=== PATIENT | male | born 1975 | race Caucasian/White ===

== ENCOUNTER 2016-05-25 13:13 | Day surgery (SDC) | payer MEDICAID ==
[2016-05-25] MEDS ORDERED: NS 1,000 ML IV SCH (13:45)
[2016-05-25] MEDS ORDERED: fentaNYL 100 MCG/2 ML INJ ONE ×2 (14:44→14:49)
[2016-05-25] MEDS ORDERED: MIDAZOLAM 2 MG/2 ML VIAL ONE ×2 (14:44→14:50)
[2016-05-25] MEDS ORDERED: TRIAMCINOLONE ACETONIDE 200 MG/5 ML MDV IM ONE (15:07)
[2016-05-25] MEDS ORDERED: LIDOCAINE 1% 30 ML SDV ONE (15:07)
--- NOTE | 2016-05-26 07:46 | IR ---
Cervical epidural steroid injection Indication: Prior injection done on October 04, 2014 did not help the patient with arm and neck pain. Pat ient is post anterior fusion at C6-C7 and C7-T1. That, unfortunately, also did not help with pain and atrophy of the left hand. Review of the MRI performed March 09, 2016 and September 11, 2014 reveals left foraminal narrowing at C 6-C7 and C7-T1. Repeat injection is requested to see if it helps. Combined posterior and anterior fusion may be neede d. Informed consent: Obtained from the patient. Risks and benefits were discussed. Cross Cutting Measure: Patient's current list of medications including all known prescriptions, over -the-counters, herbals, and vitamin/mineral/dietary supplements are reviewed. Medications' name, dos age, frequency, and route of administration are confirmed. patient is a non-smoker. Prophylactic Antibiotic: Cefazolin was not ordered and administered for antimicrobial prophylaxis be cause it was not medically necessary. VTE Prophylaxis: There is not an order for VTE prophylaxis to be given within 24 hours of the proced ure end time. VTE prophylaxis was not given because it was not medically necessary. Technique: Patient was placed in prone position. A "timeout" procedure was performed to identify th e correct patient and the correct procedure. 1% Xylocaine was used for local anesthetic. All eleme nts of maximal sterile barrier technique including cap, mask, sterile gown, sterile gloves, large zak rile sheet, hand hygiene, and 2% chlorhexidine for cutaneous antisepsis, followed. C6-C7 epidural space was engaged via interlaminar approach with 22-gauge spinal needle. Needle was ad vanced until the epidural space was delineated with contrast. This was followed by administration of 120 mg of Kenalog. Patient tolerated the procedure well. Fluoroscopy: 3 minutes, 8 images Medication: 150 mcg fentanyl, 3 mg Versed, 1445 to 1457 hours. Impression: C6-C7 epidural steroid injection performed via left intralaminar approach.
== END 2016-05-25 16:00 | disposition home or self-care (01) ==
LOC: FIMAGING 13:13
PROVIDERS: ATTEND Physician Assistant
PROC: 3E0R33Z Introduction of Anti-inflammatory into Spinal Canal, Percutaneous Approach (ICD-10-PCS; principal; 2016-05-25 15:15)
PROC: 3E0R3BZ Introduction of Anesthetic Agent into Spinal Canal, Percutaneous Approach (ICD-10-PCS; principal; 2016-05-25 15:15)
DX: M54.2 Cervicalgia (principal)
CPT/HCPCS: J2250; J3010; J3301